=== PATIENT | male | born 1955 | race Caucasian/White ===

== ENCOUNTER 2017-11-08 08:15 | Emergency (ER) | payer OTHER ==
[2017-11-08] MEDS ORDERED: HYDROCODONE/APAP 10/325 TAB ONE (09:35)
[2017-11-08 10:35] LABS: Protime INR 1.03
[2017-11-08 10:44] LABS: Absolute Monocytes 0.6 K/uL (0.1-1.3); Absolute Neutrophil 4.3 K/uL (1.8-8.0); Basophils % 0.7 % (0-1.3); Eosinophils % 3.5 % (0-4.4); Hematocrit 34.3 % (39.6-49.0); Lymphocytes % 16.4 % (15.3-44.8); MCH 30.5 pg (27.0-35.0); MCV 92.3 fL (80-100); Monocytes % 10.2 % (3.3-12.3); RBC Red Blood Cell Count 3.72 M/uL (4.33-5.43)
--- NOTE | 2017-11-08 11:44 | RAD REPORT ---
EXAM DESCRIPTION: VAS - Extremity Venous Uni Ltd - 11/08/2017 10:31 am CLINICAL HISTORY: Leg swelling and edema. COMPARISON: None. FINDINGS: Left lower extremity venous system was interrogated with Doppler technique. Normal flow, c ompressibility and augmentation was noted. There is no DVT present.A nonspecific 8 x 3 cm fluid colle ction is seen left posterior knee. IMPRESSION: No evidence of left lower extremity deep venous thrombosis.
--- NOTE | 2017-11-08 11:45 | RAD REPORT ---
EXAM DESCRIPTION: VAS - Lower Extremity Artery Uni Ltd - 11/08/2017 10:36 am CLINICAL HISTORY: Left leg pain COMPARISON: None. FINDINGS: A patent left lower extremity femoral graft is noted. Flow scintigraphic is biphasic and n ormal in amplitude. The left lower extremity distal vessels including the popliteal and posterior tibial arteries are mon ophasic and blunted. IMPRESSION: Patent arterial graft with in the left femoral region.
[2017-11-08] MEDS ORDERED: VANCOMYCIN/NS 1 gm 1 GM/250 ML BAG ONE (13:29)
--- NOTE | 2017-11-08 13:36 | ER ---
Nurse's Notes [facility] Name: Sujit Coleman Age: 62 yrs Sex: Male : 1955 Arrival Date: 11/08/2017 Time: 08:18 Bed 5 Private MD: Diagnosis: Partial wound dehiscence;Cellulitis of left lower limb Presentation: 11/08 08:23 Presenting complaint: Patient states: pt recently had L fem-pop bypass surgery at [facility] recently, but [facility] nursing staff reports that patient has had drainage from incision site and his L leg his hard. Patient has swelling noted to L lower extremity and reports he has been taking antibiotics for an infection. Transition of care: patient was not received from another setting of care. Onset of symptoms is unknown. Note Patient remain in shackles per [facility] unit policy. Residential guards are attempting to get approval to have shackle removed from L leg for further assessment. Care prior to arrival: None. 08:23 Method Of Arrival: Law Enforcement: [place] [employer] 08:23 Acuity: BLESSING 3 ss Historical: - Allergies: 08:29 No Known Allergies; ss - PSHx: 08:29 L femoral popliteal bypass; ss - Immunization history:: Adult Immunizations unknown. - Social history:: Smoking status: Patient/guardian denies using tobacco. - Family history:: not pertinent. - Hospitalizations: : No recent hospitalization is reported. Screenin:00 Abuse screen: Denies threats or abuse. Denies injuries from another. Nutritional hb screening: No deficits noted. Tuberculosis screening: No symptoms or risk factors identified. Fall Risk None identified. Assessment: 09:00 General: Appears in no apparent distress. uncomfortable, Behavior is calm, cooperative. hb Pain: Pain currently is 6 out of 10 on a pain scale. Neuro: Level of Consciousness is awake, alert, obeys commands, Oriented to person, place, time, situation. Cardiovascular: Capillary refill < 3 seconds Patient's skin is warm and dry. Respiratory: Airway is patent Trachea midline Respiratory effort is even, unlabored, Respiratory pattern is regular, symmetrical, Breath sounds are clear bilaterally. GI: No signs and/or symptoms were reported involving the gastrointestinal system. : No signs and/or symptoms were reported regarding the genitourinary system. EENT: No signs and/or symptoms were reported regarding the EENT system. Derm: surgical site at groin and left inner thigh noted to be red, hot to touch and with eschar. Musculoskeletal: No signs and/or symptoms reported regarding the musculoskeletal system. 11:17 Reassessment: Patient appears in no apparent distress at this time. No changes from la1 previously documented assessment. Patient and/or family updated on plan of care and expected duration. Pain level reassessed. Patient is alert, oriented x 3, equal unlabored respirations, skin warm/dry/pink. 12:21 Reassessment: Patient appears in no apparent distress at this time. No changes from la1 previously documented assessment. Patient and/or family updated on plan of care and expected duration. Pain level reassessed. Patient is alert, oriented x 3, equal unlabored respirations, skin warm/dry/pink. 13:34 Reassessment: Patient appears in no apparent distress at this time. No changes from la1 previously documented assessment. Patient and/or family updated on plan of care and expected duration. Pain level reassessed. Patient is alert, oriented x 3, equal unlabored respirations, skin warm/dry/pink. 13:36 Reassessment: pt D/C ordered when vanc started, will D/C after completion of Vanc. la1 15:45 Reassessment: Patient appears in no apparent distress at this time. No changes from la1 previously documented assessment. Patient and/or family updated on plan of care and expected duration. Pain level reassessed. Patient is alert, oriented x 3, equal unlabored respirations, skin warm/dry/pink. Wounds to groin and left thigh cleaned and dressed. Pt instructed to monitor for signs of infection and report to health care provider as appropriate. Vital Signs: 08:29 BP 137 / 74; Pulse 74; Resp 16; Temp 97.4(TE); Pulse Ox 99% on R/A; Weight 99.79 kg; Height 5 ft. 11 in. (180.34 cm); Pain 9/10; 13:35 BP 147 / 70; Pulse 68; Resp 19; Pulse Ox 100% on R/A; la1 15:46 BP 135 / 74; Pulse 74; Resp 19; Temp 97.5; Pulse Ox 100% on R/A; la1 08:29 Body Mass Index 30.68 (99.79 kg, 180.34 cm) ED Course: 08:18 Patient arrived in ED. as 08:24 Damián Lui MD is Attending Physician. rn 08:27 Triage completed. ss 08:29 Arm band placed on right wrist. ss 09:00 Patient has correct armband on for positive identification. Bed in low position. Call hb light in reach. Side rails up X 1. Security at bedside. 09:00 Inserted saline lock: 20 gauge in right forearm, using aseptic technique. Blood hb collected. 09:19 Ultrasound completed. Patient tolerated poorly. sg3 10:32 US Lower Extremity (Artery Uni Ltd) In Process Unspecified. EDMS 10:32 US Extremity Venous Uni Ltd In Process Unspecified. EDMS 12:12 Wound culture swab sent to lab. ms 12:21 Efren Munoz, RN is Primary Nurse. la1 13:33 Inserted saline lock: 22 gauge in right hand, using aseptic technique. la1 Administered Medications: 09:17 Drug: [place] 10 mg-325 mg 1 tabs Route: PO; hb 11:17 Follow up: Response: No adverse reaction; Pain is decreased la1 13:33 Drug: vancoMYCIN 1 grams Route: IVPB; Infused Over: 2 hrs; Site: right hand; la1 15:47 Follow up: IV Status: Completed infusion la1 Outcome: 13:35 Discharge ordered by . rn 15:44 Patient left the ED. ms Signatures: Dispatcher [employer] Neha Romo Maria ms Damián Lui MD MD rn Smirch, Shelby, RN RN Efren Munoz RN RN la1 Isabela Montes De Oca RN RN Nikki Duffy sg3 Corrections: (The following items were deleted from the chart) 10:15 10:05 Ultrasound completed. Patient tolerated poorly. sg3 sg3
--- NOTE | 2017-11-08 13:36 | EDPHYS ---
Physician Documentation [facility] Name: Sujit Coleman Age: 62 yrs Sex: Male : 1955 Arrival Date: 11/08/2017 Time: 08:18 Bed 5 Private MD: ED Physician Damián Lui HPI: 11/08 09:14 This 62 yrs old Male presents to ER via Law Enforcement with complaints of rn Leg Swelling. 09:14 The patient presents with pain, swelling. The complaints affect the medial aspect of rn left thigh. Onset: The symptoms/episode began/occurred 2 day(s) ago. Severity of symptoms: At their worst the symptoms were moderate, in the emergency department the symptoms are unchanged. The patient has not experienced similar symptoms in the past. The patient has been recently seen by a physician:. Reports L fem-pop bypass approx 2 weeks ago, had been doing ok, got stitches removed recently, sent by intermediate clinic because when changing dressing noticed firmness of leg and erythema, + drainage from wounds. Pt reports on and off chills.. Historical: - Allergies: 08:29 No Known Allergies; ss - PSHx: 08:29 L femoral popliteal bypass; ss - Immunization history:: Adult Immunizations unknown. - Social history:: Smoking status: Patient/guardian denies using tobacco. - Family history:: not pertinent. - Hospitalizations: : No recent hospitalization is reported. ROS: 09:14 Constitutional: Negative for fever, and weight loss, Eyes: Negative for injury, pain, rn redness, and discharge, Neck: Negative for injury, pain, and swelling, Cardiovascular: Negative for chest pain, palpitations, and edema, Respiratory: Negative for shortness of breath, cough, wheezing, and pleuritic chest pain, Abdomen/GI: Negative for abdominal pain, nausea, vomiting, diarrhea, and constipation, Back: Negative for injury and pain, MS/Extremity: Negative for injury and deformity, Skin: Negative for injury, rash, and discoloration, Neuro: Negative for headache, weakness, numbness, tingling, and seizure. Exam: 09:14 Constitutional: This is a well developed, well nourished patient who is awake, alert, rn and in no acute distress. Head/Face: Normocephalic, atraumatic. Cardiovascular: Regular rate and rhythm with a normal S1 and S2. No gallops, murmurs, or rubs. Normal PMI, no JVD. No pulse deficits. Respiratory: Lungs have equal breath sounds bilaterally, clear to auscultation and percussion. No rales, rhonchi or wheezes noted. No increased work of breathing, no retractions or nasal flaring. Abdomen/GI: Soft, non-tender, with normal bowel sounds. No distension or tympany. No guarding or rebound. No evidence of tenderness throughout. MS/ Extremity: LLE with moderate swelling and tenderness along medial thigh, left groin wound with mild dehiscence, fibrinous tissue, no liquid drainage, + surrounding erythema. + pitting edema LLE from femoral region to foot. Vital Signs: 08:29 BP 137 / 74; Pulse 74; Resp 16; Temp 97.4(TE); Pulse Ox 99% on R/A; Weight 99.79 kg; ss Height 5 ft. 11 in. (180.34 cm); Pain 9/10; 13:35 BP 147 / 70; Pulse 68; Resp 19; Pulse Ox 100% on R/A; la1 15:46 BP 135 / 74; Pulse 74; Resp 19; Temp 97.5; Pulse Ox 100% on R/A; la1 08:29 Body Mass Index 30.68 (99.79 kg, 180.34 cm) ss MDM: 08:25 Patient medically screened. rn 11:18 ED course: Wound now draining serosanguinous fluid. rn 13:07 ED course: Still waiting business support liaison back from [facility] regarding transfer for wound dehiscence rn and need for wound debridement.. 13:32 Differential diagnosis: wound dehiscence, cellulitis, DVT, graft failure. Data rn reviewed: vital signs, nurses notes, lab test result(s), radiologic studies, doppler, ultrasound, and as a result, I will discharge patient. Counseling: I had a detailed discussion with the patient and/or guardian regarding: the historical points, exam findings, and any diagnostic results supporting the discharge/admit diagnosis, lab results, radiology results, the need for outpatient follow up, to return to the emergency department if symptoms worsen or persist or if there are any questions or concerns that arise at home. Special discussion: I discussed with the patient/guardian in detail that at this point there is no indication for admission to the hospital. It is understood, however, that if the symptoms persist or worsen the patient needs to return immediately for re-evaluation. ED course: Consulted with Dr. Mills at [facility], states ok to DC home, normal blood work, normal procalcitonin, serous fluid, partial wound dehiscence, recommended continuation of oral abx, and will schedule outpt clinic appt [facility]. They state will contact unit. . 11/08 08:54 Order name: CBC with Diff; Complete Time: 10:58 rn 11/08 08:54 Order name: Basic Metabolic Panel; Complete Time: 10:44 rn 11/08 08:54 Order name: Protime (+inr); Complete Time: 10:44 rn 11/08 08:54 Order name: Ptt, Activated; Complete Time: 10:44 rn 11/08 08:55 Order name: Blood Culture Adult (2) rn 11/08 08:55 Order name: Procalcitonin; Complete Time: 10:58 rn 11/08 08:54 Order name: IV Start; Complete Time: 09:15 rn 11/08 08:54 Order name: US Lower Extremity (Artery Uni Ltd); Complete Time: 12:05 rn 11/08 08:54 Order name: Extremity Venous Uni Ltd; Complete Time: 12:05 rn 11/08 09:28 Order name: Labs - recollect needed; Complete Time: 11:17 bd 11/08 11:18 Order name: Wound Culture rn Administered Medications: 09:17 Drug: [place] 10 mg-325 mg 1 tabs Route: PO; hb 11:17 Follow up: Response: No adverse reaction; Pain is decreased la1 13:33 Drug: vancoMYCIN 1 grams Route: IVPB; Infused Over: 2 hrs; Site: right hand; la1 15:47 Follow up: IV Status: Completed infusion la1 Disposition: 11/08/17 13:35 Discharged to Home. Impression: Partial wound dehiscence, Cellulitis of left lower limb. - Condition is Stable. - Discharge Instructions: Cellulitis, Wound Dehiscence. - Prescriptions for Keflex 500 mg Oral Capsule - take 1 capsule by ORAL route every 12 hours for 10 days; 20 capsule. Bactrim DS 800- 160 mg Oral Tablet - take 1 tablet by ORAL route every 12 hours for 10 days; 20 tablet. - Medication Reconciliation Form, Thank You Letter, Antibiotic Education, Prescription Opioid Use form. - Follow up: Private Physician; When: As needed; Reason: Recheck today's complaints, Re-evaluation by your physician. - Problem is an ongoing problem. - Symptoms are unchanged. Signatures: Dispatcher [employer] Marjorie Caballero Maria ms Nieto, Roman, MD MD rn Smirch, Shelby, RN RN ss Efren Munoz RN RN la1 Isabela Montes De Oca RN RN hb
== END 2017-11-08 15:44 | disposition home or self-care (01) ==
LOC: ER 08:15
DX: T81.30XA Disruption of wound, unspecified, initial encounter (principal); L03.116 Cellulitis of left lower limb
CPT/HCPCS: 36415; 80048; 84145; 85025; 85610; 85730; 87040; 87070; 87205; 93926; 93971; 96365; 96366; 99284; J3370